=== PATIENT | male | born 1995 | race Hispanic/Latino ===

== ENCOUNTER 2020-01-12 00:01 | Emergency (ER) | payer SELFPAY ==
[~2020-01-12] VITALS: Ht 167.6 cm; Wt 79.4 kg
[2020-01-12] MEDS ORDERED: POLYTRIM EYE DR10 ML OS (00:51)
--- NOTE | 2020-01-12 00:52 | Emergency Department Note ---
History of Present Illnes History of Present Illness Chief Complaint: left eye foreign body sensation while sawing History of Present Illness This is a 24 year old male. 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 Onset (how long ago): hour(s) (4) Location: left eye Quality: irritation Radiation: Reports non-radiation Severity: moderate Onset quality: sudden Duration (how long): hour(s) (4) Timing of current episode: constant Progression: worsening Chronicity: new Context: Denies recent illness, Denies recent surgery, Denies recent immobilization, Denies recent travel, Denies trauma/injury, Denies new medications Relieving factors: none Exacerbating factors: none Associated symptoms: Reports denies other symptoms Treatments prior to arrival: none Past Medical/Family History Physician Review I have reviewed the patient's past medical and family history. Any updates have been documented here. Past Medical History Recent Fever: No Clinical Suspicion of Infectio: No New/Unexplained Change in Ment: No Past Medical History: None Past Surgical History: None Social History Smoking Cessation: Never Smoker Counseling Performed: No Alcohol Use: None Any Illegal Drug Use: No Other Any Pre-Existing Lines (PICC,: No Review of Systems Review of Systems Constitutional: Reports no symptoms EENTM: Reports as per HPI Cardiovascular: Reports no symptoms Respiratory: Reports no symptoms Gastrointestinal: Reports no symptoms Genitourinary: Reports no symptoms Musculoskeletal: Reports no symptoms Integumentary: Reports no symptoms Neurological: Reports no symptoms Psychological: Reports no symptoms Endocrine: Reports no symptoms Hematological/Lymphatic: Reports no symptoms Review of other systems: All other systems negative Physical Exam Related Data Allergies: Coded Allergies: No Known Allergies (Unverified , 01/12/20) Triage Vital Signs Vital Signs Date Time Temp Pulse Resp B/P (MAP) Pulse Ox O2 Delivery O2 Flow Rate FiO2 01/12/20 00:15 98.4 66 18 142/80 100 Room Air Physical Exam CONSTITUTIONAL Constitutional: Present well-developed, Present well-nourished HENT HENT: Present normocephalic, Present atraumatic, Present oropharynx clear/moist, Present nose normal HENT L/R: Present left ext ear normal, Present right ext ear normal EYES Eyes: Reports PERRL, Reports EOM normal, Reports other (left conjunctival erythema// no corneal abrasion, with a wet q tip i ran it under left upper eyelid and retrieve some specs of wood and then irritated eye out . pt symptoms went away) NECK Neck: Present ROM normal PULMONARY Pulmonary: Present effort normal, Present breath sounds normal CARDIOVASCULAR Cardiovascular: Present regular rhythm, Present heart sounds normal, Present capillary refill normal, Present normal rate GASTROINTESTINAL Abdominal: Present soft, Present nontender, Present bowel sounds normal GENITOURINARY Genitourinary: Present exam deferred SKIN Skin: Present warm, Present dry MUSCULOSKELETAL Musculoskeletal: Present ROM normal NEUROLOGICAL Neurological: Present alert, Present oriented x 3, Present no gross motor or sensory deficits PSYCHOLOGICAL Psychological: Present mood/affect normal, Present judgement normal Assessment & Plan Medical Decision Making MDM eye foreign body Assessment & Plan Final Impression: (1) Eye foreign body (2) Conjunctivitis Depart Disposition: HOME, SELF-CARE Last Vital Signs Date Time Temp Pulse Resp B/P (MAP) Pulse Ox O2 Delivery O2 Flow Rate FiO2 01/12/20 00:15 98.4 66 18 142/80 100 Room Air Home Meds Active Scripts Polymyxin B Sulfate/Tmp (POLYTRIM EYE DROPS) 10 Ml Drops, 2 DROP OS Q4HR, #1 BOTTLE Prov:WENDY LEE 01/12/20 WENDY LEE Jan 12, 2020 00:52
== END 2020-01-12 01:15 | disposition home or self-care (01) ==
LOC: FSED 00:30
DX: T15.92XA Foreign body on external eye, part unspecified, left eye, initial encounter (principal); H10.9 Unspecified conjunctivitis
CPT/HCPCS: 99283